=== PATIENT | female | born 1980 | race Caucasian/White ===

== ENCOUNTER 2017-12-28 12:01 | Emergency (ER) | payer BC, OTHER ==
[~2017-12-28] VITALS: Ht 157.5 cm; Wt 81.6 kg
--- NOTE | 2017-12-28 12:52 | ED Headache ---
General Chief Complaint: Head/Cervical Problems Stated Complaint: MIGRAINE Nursing Triage Note: PT AMB. TO ROOM 5 W/O DIFFUCLTY. A&OX4. CO MIGRIANE HEADACHE THAT BEGAN 3 DAYS AGO, PHOTOPHOBIA, AND NAUSEA. REPORTS PAIN IS BEHIND EYES AND BACK OF NECK. Nursing Sepsis Screen: No Definite Risk Source: patient Exam Limitations: no limitations History of Present Illness Date Seen by Provider: Dec 28, 2017 Time Seen by Provider: 12:35 Initial Comments The patient presents to the ER by private conveyance with a chief complaint she' s had a headache for 3 days now off and on. Is progressively getting worse. She describes it as throbbing and worse with standing and behind the eyes and in the occiput. She says it's similar to her previous migraine headaches that she' s had since she was a little child. She does not follow with a doctor nor she had these worked up by neurology. She does not take any medicines at all including control but she has had her tubes tied. She's tried ibuprofen around midnight last night most recently. She also tried to hydrocodone from a family member yesterday with minimal relief. She says she does not like going to the doctor she doesn't have to but had not she decided to come in. She is having photophobia and phonophobia. 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 She says she's been using Benadryl several times a day for the past several months for allergies. Allergies and Home Medications Allergies Coded Allergies: No Known Drug Allergies (Unverified , 12/28/17) Patient Home Medication List Home Medication List Reviewed: Yes Review of Systems Constitutional: No chills, No diaphoresis Eyes: Denies Blindness, Denies Blurred Vision, Denies Drainage, Denies Foreign Body Sensation, Denies Inflammation; Photophobia; Denies Vision Changes, Denies Contact Lenses, Denies Glasses Ears, Nose, Mouth, Throat: denies ear pain, denies ear discharge, denies nose pain, denies nose discharge Respiratory: No cough, No short of breath Cardiovascular: No chest pain, No edema Gastrointestinal: No abdominal pain, No constipation; nausea; No vomiting Genitourinary: No discharge, No dysuria : No (status post tubal ligation) Musculoskeletal: No back pain, No muscle pain Psychiatric/Neurological: Headache; Denies Numbness, Denies Paresthesia, Denies Seizure Past Gvtdjpp-Bmnzxk-Edsvav Hx Patient Social History Alcohol Use: Denies Use Recreational Drug Use: No Smoking Status: Never a Smoker 2nd Hand Smoke Exposure: No Recent Foreign Travel: No Contact w/Someone Who Travel: No Recent Infectious Disease Expo: No Recent Hopitalizations: No Physical Abuse: No Sexual Abuse: No Seasonal Allergies Seasonal Allergies: Yes Past Medical History Tonsillectomy, Tubal Ligation Respiratory: No Cardiac: No Neurological: No Female Reproductive Disorders: 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 Sexually Transmitted Disease: No Genitourinary: No Gastrointestinal: No Musculoskeletal: No Endocrine: No HEENT: No Cancer: No Psychosocial: No Nursing Suicide Risk Score: 0 Integumentary: No Blood Disorders: No Physical Exam Vital Signs Vital Signs - First Documented 12/28/17 12:17 Temp 98.5 Pulse 71 Resp 16 B/P (MAP) 142/111 (121) Pulse Ox 97 O2 Delivery Room Air Capillary Refill : Less Than 3 Seconds Height, Weight, BMI Height: 5', 2.00" Weight: 180lbs oz, 81.633944pd Method:Stated ,BMI General Appearance: WD/WN, mild distress HEENT: PERRL/EOMI, normal ENT inspection, TMs normal, pharynx normal, other ( drinking Pepsi) Neck: non-tender, supple, normal inspection Cardiovascular: normal peripheral pulses, regular rate, rhythm Respiratory: lungs clear, normal breath sounds, no respiratory distress, no accessory muscle use Extremities: normal inspection, normal capillary refill Psychiatric: alert, oriented x 3 Crainal Nerves: normal hearing, normal speech, PERRL Coordination/Gait: normal gait Motor/Sensory: no motor deficit, no sensory deficit, no pronator drift Progress/Results/Core Measures Results/Orders My Orders Orders - PARI PLUMMER Sumatriptan Injection (Imitrex Injection (12/28/17 13:00) Prochlorperazine Injection (Compazine In (12/28/17 13:00) Diphenhydramine Tablet (Benadryl Tablet) (12/28/17 13:00) Acetaminophen Tablet (Tylenol Tablet) (12/28/17 13:00) Ketorolac Injection (Toradol Injection) (12/28/17 13:00) Ondansetron Oral Dissolve Tab (Zofran (12/28/17 13:00) Medications Given in ED Current Medications Medications Dose Ordered Sig/Sendy Route Start Time Stop Time Status Last Admin Dose Admin Acetaminophen 1,000 mg ONCE ONCE PO 12/28/17 13:00 12/28/17 13:01 DC 12/28/17 13:06 1,000 MG Diphenhydramine HCl 25 mg ONCE ONCE PO 12/28/17 13:00 12/28/17 13:01 DC 12/28/17 13:06 25 MG Ketorolac Tromethamine 30 mg ONCE ONCE IM 12/28/17 13:00 12/28/17 13:01 DC 12/28/17 13:08 30 MG Ondansetron HCl 4 mg ONCE ONCE PO 12/28/17 13:00 12/28/17 13:01 DC 12/28/17 13:06 4 MG Prochlorperazine Edisylate 10 mg ONCE ONCE IM 12/28/17 13:00 12/28/17 13:01 DC 12/28/17 13:14 10 MG Sumatriptan Succinate 6 mg ONCE ONCE SQ 12/28/17 13:00 12/28/17 13:01 DC 12/28/17 13:12 6 MG Vital Signs/I&O 12/28/17 12:17 Temp 98.5 Pulse 71 Resp 16 B/P (MAP) 142/111 (121) Pulse Ox 97 O2 Delivery Room Air Blood Pressure Mean: 121 Progress Progress Note : Time: 12:52 Progress Note Sumatriptan, Tylenol, ketorolac, Zofran, Compazine, Benadryl and go home get some sleep. We have encouraged her to follow up with a primary care provider and all benefits that could entail. We have also encouraged her to switch from using Benadryl to Zyrtec for daily allergy use. Departure Impression Primary Impression: Migraine Qualified Codes: G43.001 - Migraine without aura, not intractable, with status migrainosus Disposition: HOME, SELF-CARE Condition: Stable Departure-Patient Inst. Decision time for Depature: 13:27 Referrals: NO,LOCAL PHYSICIAN (PCP/Family) Primary Care Physician Patient Instructions: Migraine Headache (DC) Add. Discharge Instructions: Please establish care with a primary care doctor to discuss using preventative medicines as well as some headache ending drugs such as sumatriptan. Avoid opiates as these can cause more chronic and frequent headaches. Drink plenty of fluids go home and get some sleep. You can use Tylenol 1000 mg every 8 hours in addition to ibuprofen 800 mg every 8 hours as needed for pain. Instead of using Benadryl daily you should probably consider switching to Zyrtec or Claritin as they do not have the drowsy side effects and last 24 hours. All discharge instructions reviewed with patient and/or family. Voiced understanding. Work/School Note: Work Release Form Date Seen in the Emergency Department: Dec 28, 2017 Return to Work: Dec 29, 2017 Restrictions: No Restrictions PARI PLUMMER Dec 28, 2017 12:52
[2017-12-28] MEDS ORDERED: ONDANSETRON 4 MG (ZOFRAN) ORAL DISSOLVE TAB PO ONE (13:00)
[2017-12-28] MEDS ORDERED: ACETAMINOPHEN 500 MG TAB (TYLENOL) PO ONE (13:00)
[2017-12-28] MEDS ORDERED: PROCHLORPERAZINE 10 MG/2ML INJ (COMPAZINE) IM ONE (13:00)
[2017-12-28] MEDS ORDERED: KETOROLAC 30 MG/ML VIAL IM ONE (13:00)
[2017-12-28] MEDS ORDERED: SUMAtriptan 6 MG/0.5 ML (IMITREX) INJ SQ ONE (13:00)
[2017-12-28] MEDS ORDERED: diphenhydrAMINE 25 MG TAB (BENADRYL) PO ONE (13:00)
[2017-12-28 13:53] VITALS: BP 167/102
== END 2017-12-28 13:53 | disposition home or self-care (01) ==
LOC: ER 12:05
DX: G43.909 Migraine, unspecified, not intractable, without status migrainosus (principal); Z98.51 Tubal ligation status; Z90.89 Acquired absence of other organs
CPT/HCPCS: 96372; 99284

== ENCOUNTER 2018-10-09 20:05 | Emergency (ER) | payer BC, OTHER ==
[~2018-10-09] VITALS: Ht 157.5 cm; Wt 81.6 kg
[2018-10-09] MEDS ORDERED: PROCHLORPERAZINE 10 MG/2ML INJ (COMPAZINE) INJ ONE (21:15)
[2018-10-09] MEDS ORDERED: KETOROLAC 60 MG/2 ML VIAL IM ONE (21:15)
[2018-10-09] MEDS ORDERED: diphenhydrAMINE 50 MG/ML INJ (BENADRYL) IM ONE (21:15)
--- NOTE | 2018-10-09 21:16 | ED Headache ---
General Chief Complaint: Head/Cervical Problems Stated Complaint: MIGRAINE Nursing Triage Note: PT AMB TO TRIAGE WITH COMPLAINT OF MIGRAINE. STATES MIGRAINE STARTED TODAY. STATES TOOK 4 TYLENOL PM FOUR HOURS AGO. STATES DID NOT RELIEVE SYMPTOMS. Nursing Sepsis Screen: No Definite Risk Source: patient Exam Limitations: no limitations (Of nausea vomiting with it) History of Present Illness Date Seen by Provider: Oct 09, 2018 Time Seen by Provider: 21:14 Initial Comments To ER with a global headache that started earlier today with associated photophobia and nausea. She has these occasionally. This is similar to prior. This was not sudden onset. Timing/Duration: other Severity/Quality: constant Location: global Prior Headaches/Recent Trauma: occasional headaches Modifying Factors: worse with exposure to light Associated Symptoms: nausea/vomiting Allergies and Home Medications Allergies Coded Allergies: No Known Drug Allergies (Unverified , 12/28/17) Patient Home Medication List Home Medication List Reviewed: Yes Review of Systems Review of Systems Constitutional: see HPI Eyes: No Symptoms Reported Ears, Nose, Mouth, Throat: no symptoms reported Respiratory: no symptoms reported Cardiovascular: no symptoms reported Genitourinary: no symptoms reported Musculoskeletal: no symptoms reported Skin: no symptoms reported Psychiatric/Neurological: Headache Past Pbdvscm-Lbrhdg-Fdedkd Hx Patient Social History Alcohol Use: Denies Use Recreational Drug Use: No Smoking Status: Never a Smoker 2nd Hand Smoke Exposure: No Recent Foreign Travel: No Contact w/Someone Who Travel: No Recent Infectious Disease Expo: No Recent Hopitalizations: No Immunizations Up To Date Tetanus Booster (TDap): Unknown PED Vaccines UTD: Yes Seasonal Allergies Seasonal Allergies: Yes Past Medical History Surgeries: Yes Gallbladder, Tonsillectomy, Tubal Ligation Respiratory: No Cardiac: No Neurological: Yes Headaches /Migraines Female Reproductive Disorders: 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 oz. 81.935460cf; BMI Method:Stated General Appearance: WD/WN, no apparent distress HEENT: PERRL/EOMI, normal ENT inspection Respiratory: lungs clear, normal breath sounds, no respiratory distress, no accessory muscle use Gastrointestinal: normal bowel sounds, non tender, soft Extremities: normal range of motion, non-tender Psychiatric: alert, oriented x 3 Crainal Nerves: normal hearing, normal speech Skin: normal color, warm/dry Progress/Results/Core Measures Results/Orders My Orders Orders - ELOY VASQUEZ APRN Prochlorperazine Injection (Compazine In (10/09/18 21:15) Diphenhydramine Injection (Benadryl Inje (10/09/18 21:15) Ketorolac Injection (Toradol Injection) (10/09/18 21:15) Medications Given in ED Vital Signs/I&O 10/09/18 10/09/18 21:02 21:49 Temp 97.8 97.8 Pulse 61 77 Resp 20 20 B/P (MAP) 172/92 (118) 141/89 (106) Pulse Ox 97 97 O2 Delivery Room Air Blood Pressure Mean: 118 Departure Impression Primary Impression: Headache Qualified Codes: R51 - Headache Disposition: 01 HOME, SELF-CARE Condition: Stable Departure-Patient Inst. Decision time for Depature: 21:36 Referrals: NO,LOCAL PHYSICIAN (PCP/Family) Primary Care Physician Patient Instructions: Headache, Adult (DC) Add. Discharge Instructions: 1. Return to ER for any concerns 2. Follow-up with regular doctor. All discharge instructions reviewed with patient and/or family. Voiced understanding. ELOY VASQUEZ APRN Oct 09, 2018 21:16
[2018-10-09 21:49] VITALS: BP 141/89
--- OUTSIDE RECORDS SUMMARY | 2018-10-09 22:18 | XMS REPORT ---
Author Author ROSA DIEHL Organization [facility] Address [address] [place] [address] Care Team Providers Care Furniture Sander Name Role Phone KING ROSA Unavailable PROBLEMS Unknown Problems ALLERGIES No Known Allergies ENCOUNTERS Encounter Location Date Diagnosis [facility] [address] [facility] [id number], [place] [address] Jan, Well woman exam with routine gynecological exam Z01.419 IMMUNIZATIONS No Known Immunizations SOCIAL HISTORY Never Assessed REASON FOR VISIT Well Woman Exam- last march she saw a doctor in [place] and they diagnosed her with HPV, she was supposed to follow up but didn't. Jeremy Rios RN PLAN OF CARE Activity Details Follow Up 1 Year or as indicated by lab Reason: VITAL SIGNS Height 62 in 2018-02-10 Weight 205.3 lbs 2018-02-10 Temperature 98.6 degrees Fahrenheit 2018-02-10 Heart Rate 70 bpm 2018-02-10 Respiratory Rate 18 2018-02-10 BMI 37.55 kg/m2 2018-02-10 Blood pressure systolic 112 mmHg 2018-02-10 Blood pressure diastolic 82 mmHg 2018-02-10 MEDICATIONS No Known Medications RESULTS No Results PROCEDURES Procedure Date Ordered Result Body Site SPECIMEN HANDLING Feb 10, 2018 Bacterial Vaginosis In House Feb 10, 2018 CULTURE, BACTERIA, OTHER Feb 10, 2018 TRICHOMONAS ASSAY W/OPTIC Feb 10, 2018 No Charge Feb 10, 2018 INSTRUCTIONS MEDICATIONS ADMINISTERED No Known Medications MEDICAL (GENERAL) HISTORY Type Description Date Surgical History gallbladder removal 2007 Surgical History tonsillectomy age 5 Surgical History tubal ligation 05/2007 Hospitalization History childbirth/ surgeries Hospitalization History internal bleeding after gallbladder surgery
== END 2018-10-09 21:49 | disposition home or self-care (01) ==
LOC: EDUNIT# 20:05 → ER 20:06
DX: R51 Headache (principal); Z98.51 Tubal ligation status; Z90.89 Acquired absence of other organs; Z86.69 Personal history of other diseases of the nervous system and sense organs
CPT/HCPCS: 99284

== ENCOUNTER 2018-12-12 20:39 | Emergency (ER) | payer BC ==
[~2018-12-12] VITALS: Ht 157.5 cm; Wt 81.6 kg
--- OUTSIDE RECORDS SUMMARY | 2018-12-12 20:43 | XMS REPORT | Continuity of Care Document ---
Author Organization Unknown Address Unknown Allergies Active Description Code Type Severity Reaction Onset Reported/Identified Relationship to Patient Clinical Status Yes No Known Drug Allergies [id number] Drug Allergy Unknown N/A 12/28/2017 Medications There is no data. Problems Date Dx Coded Attending Type Code Diagnosis Diagnosed By 12/28/2017 PARI PLUMMER MD Ot G43.909 MIGRAINE, UNSP, NOT INTRACTABLE, WITHOUT 12/28/2017 PARI PLUMMER MD Ot R51 HEADACHE 12/28/2017 PARI PLUMMER MD Ot Z90.89 ACQUIRED ABSENCE OF OTHER ORGANS 12/28/2017 PARI PLUMMER MD Ot Z98.51 TUBAL LIGATION STATUS 12/30/2017 PARI PLUMMER MD Ot G43.909 MIGRAINE, UNSP, NOT INTRACTABLE, WITHOUT 12/30/2017 PARI PLUMMER MD Ot R51 HEADACHE 12/30/2017 PARI PLUMMER MD Ot Z90.89 ACQUIRED ABSENCE OF OTHER ORGANS 12/30/2017 PARI PLUMMER MD Ot Z98.51 TUBAL LIGATION STATUS 10/09/2018 ELOY VASQUEZ APRN Ot R51 HEADACHE 10/09/2018 ELOY VASQUEZ APRN Ot Z86.69 PERSONAL HISTORY OF DIS OF THE NERVOUS S 10/09/2018 ELOY VASQUEZ APRN Ot Z90.89 ACQUIRED ABSENCE OF OTHER ORGANS 10/09/2018 ELOY VASQUEZ APRN Ot Z98.51 TUBAL LIGATION STATUS 10/12/2018 ELOY VASQUEZ APRN Ot R51 HEADACHE 10/12/2018 ELOY VASQUEZ APRN Ot Z86.69 PERSONAL HISTORY OF DIS OF THE NERVOUS S 10/12/2018 ELOY VASQUEZ APRN Ot Z90.89 ACQUIRED ABSENCE OF OTHER ORGANS 10/12/2018 ELOY VASQUEZ APRN Ot Z98.51 TUBAL LIGATION STATUS Procedures There is no data. Results Test Result Range SUREPATH PAP AND HPV mRNA E6/E7 - 02/10/18 17:18 CLINICAL INFORMATION: NRG LMP: 01/31/18 NRG PREV. PAP: NRG PREV. BX: NRG SOURCE: Cervix NRG STATEMENT OF ADEQUACY: NRG INTERPRETATION/RESULT: NRG MEDIA SERVICES DIRECTOR: NRG HPV mRNA E6/E7, SUREPATH VIAL Not Detected NOT DETECTED COMMENT NRG CULTURE, GENITAL - 02/10/18 17:18 CULTURE, GENITAL SEE NOTE NRG Encounters ACCT No. Visit Date/Time Discharge Status Pt. Type Provider Facility Loc./Unit Complaint [id number] 10/25/2018 10:20:00 10/25/2018 23:59:59 CLS Outpatient JOSÉ ANTONIO LAC [facility] [id number] 02/10/2018 16:00:00 Document Registration [id number] 10/09/2018 20:06:00 10/09/2018 21:49:00 DIS Emergency ELOY VASQUEZ APRN [facility] ER MIGRAINE [id number] 12/28/2017 12:05:00 12/28/2017 13:53:00 DIS Emergency PARI PLUMMER MD [facility] ER MIGRAINE
--- NOTE | 2018-12-12 21:02 | ED Upper Extremity ---
General Chief Complaint: Upper Extremity Stated Complaint: R SHOULDER PAIN Nursing Triage Note: PT STATES SHE HAS R. SHOULDER PAIN FOR 1 MONTH. PT STATES SHE HAS [place] TODAY AND HAD A PULLING INJURY. PT DENIES NUMBNESS OR TINGLING IN HANDS. Nursing Sepsis Screen: No Definite Risk History of Present Illness Date Seen by Provider: Dec 12, 2018 Time Seen by Provider: 21:00 Initial Comments 38-year-old female presents for right shoulder pain. She is unsure of the specific injury but has been bothering her for at least one month. [place] and felt a pop in her right shoulder. SHe denies any previous history of injuries to her right shoulder. She has not taken any bvhn-hir-yfnsnfm pain medications. She has a history of hypertension but does not take her medications. Onset: this evening Pain/Injury Location: right shoulder Method of Injury: unknown Allergies and Home Medications Allergies Coded Allergies: No Known Drug Allergies (Unverified , 12/28/17) Patient Home Medication List Home Medication List Reviewed: Yes Review of Systems Constitutional: no symptoms reported Musculoskeletal: see HPI, joint pain (right shoulder) All Other Systems Reviewed Negative Unless Noted: Yes Past Xzmnhov-Fpxkhz-Jmlnew Hx Past Med/Social Hx: Reviewed Nursing Past Med/Soc Hx Patient Social History Alcohol Use: Denies Use Recreational Drug Use: No Smoking Status: Never a Smoker 2nd Hand Smoke Exposure: No Recent Foreign Travel: No Contact w/Someone Who Travel: No Recent Infectious Disease Expo: No Recent Hopitalizations: No Physical Abuse: No Sexual Abuse: No Mistreated: No Fear: No Immunizations Up To Date Tetanus Booster (TDap): Unknown PED Vaccines UTD: Yes Seasonal Allergies Seasonal Allergies: Yes Past Medical History Surgeries: Yes Gallbladder, Tonsillectomy, Tubal Ligation Respiratory: No Cardiac: Yes Hypertension (Noncompliant with treatment) Neurological: Yes Headaches /Migraines Female 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 oz. 81.512636hl; BMI Method:Stated General Appearance: WD/WN, no apparent distress Neck: non-tender, full range of motion, supple, normal inspection Cardiovascular: normal peripheral pulses, regular rate, rhythm Respiratory: chest non-tender, lungs clear, normal breath sounds Shoulder: normal inspection (right shoulder), no evidence of injury, limited ROM, pain Neurologic/Psychiatric: no motor/sensory deficits, alert, normal mood/affect, oriented x 3 Skin: normal color, warm/dry Right shoulder active range of motion: Elevation to 90, full internal rotation and external rotation. Passive range of motion 120 but with discomfort. Negative apprehension [place]'s maneuver. Power V/V biceps and triceps weakness /V external rotators. Neurovascular status intact right upper extremity symmetric with the left. Progress/Results/Core Measures Results/Orders My Orders Orders - RACHANA HAIDER Shoulder, Right, 3 Views (12/12/18 20:51) Ibuprofen Tablet (Motrin Tablet) (12/12/18 21:30) Vital Signs/I&O 12/12/18 20:50 Temp 97.6 Pulse 69 Resp 18 B/P (MAP) 162/121 (135) Pulse Ox 97 O2 Delivery Room Air Blood Pressure Mean: 135 Diagnostic Imaging Diagonstic Imaging: Xray Plain Films/CT/US/NM/MRI: other (right shoulder) Comments NAME: DEBESTRELLA Trini [facility] REC#: [id number] PT STATUS: REG ER : 1980 PHYSICIAN: RACHANA HAIDER ADMIT DATE: 12/12/18/ER Draft Date of Exam:12/12/18 SHOULDER, RIGHT, 3 VIEWS PATIENT HISTORY: Right shoulder pain for one month. TECHNIQUE: 3 views of the right shoulder COMPARISON: None FINDINGS: No acute fracture or dislocation is seen in the right shoulder. Alignment appears normal. Joint spaces are preserved. IMPRESSION: No acute osseous abnormality seen in the right shoulder. Dictated on workstation # [id number] Dict: 12/12/182119 Trans: 12/12/182128 [facility] [id number] Interpreted by: ERIC TOLEDO MD Electronically signed by: Reviewed: Reviewed by Me Departure Impression Primary Impression: Right shoulder pain Qualified Codes: M25.511 - Pain in right shoulder Additional Impression: Injury of right rotator cuff Qualified Codes: S46.001A - Unspecified injury of muscle(s) and tendon(s) of the rotator cuff of right shoulder, initial encounter Disposition: HOME, SELF-CARE Condition: Improved Departure-Patient Inst. Decision time for Depature: 21:22 Referrals: NO,LOCAL PHYSICIAN (PCP/Family) Primary Care Physician Patient Instructions: Rotator Cuff Injury (DC) Add. Discharge Instructions: Ice to right shoulder 20 minutes every 2 hours while awake. All up at [facility] for referral to orthopedics. (Dr. Crain at [facility], Dr. [facility] in [place], [facility] in [place]). Alternate between ibuprofen 600 mg and Tylenol 650 mg every 4 hours for pain. Gentle range of motion exercises to right shoulder as instructed. Activity as tolerated. Resume your blood pressure medication and follow-up at [facility] for hypertension. Return to emergency department for new, urgent health care needs. All discharge instructions reviewed with patient and/or family. Voiced understanding. RACHANA HAIDER Dec 12, 2018 21:02
[2018-12-12] MEDS ORDERED: IBUPROFEN 800 MG (MOTRIN) TAB PO ONE (21:30)
--- NOTE | 2018-12-12 21:30 | Diagnostic Imaging Report ---
PATIENT HISTORY: Right shoulder pain for one month. TECHNIQUE: 3 views of the right shoulder COMPARISON: None FINDINGS: No acute fracture or dislocation is seen in the right shoulder. Alignment appears normal. Joint spaces are preserved. IMPRESSION: No acute osseous abnormality seen in the right shoulder. Dictated by: Dictated on workstation # [id number]
[2018-12-12 21:34] VITALS: BP 162/121
== END 2018-12-12 21:35 | disposition home or self-care (01) ==
LOC: EDUNIT# 20:39 → ER 20:40
DX: S46.001A Unspecified injury of muscle(s) and tendon(s) of the rotator cuff of right shoulder, initial encounter (principal); I10 Essential (primary) hypertension; G43.909 Migraine, unspecified, not intractable, without status migrainosus; Z91.14 Patient's other noncompliance with medication regimen; Z98.51 Tubal ligation status; Z90.89 Acquired absence of other organs; X50.1XXA Overexertion from prolonged static or awkward postures, initial encounter; Y92.830 Public park as the place of occurrence of the external cause
CPT/HCPCS: 73030

== ENCOUNTER 2021-06-14 17:27 | Emergency (ER) | payer SELFPAY ==
[~2021-06-14] VITALS: Ht 157.5 cm; Wt 86.2 kg
--- NOTE | 2021-06-14 19:18 | Diagnostic Imaging Report ---
EXAMINATION: Chest radiograph, portable AP view. DATE: 06/14/2021 6:58 PM. INDICATION: 41-year-old female, cough, shortness of breath. COMPARISON: None. FINDINGS: Heart size and mediastinal contours are unremarkable. There is no identified pneumothorax. There is no large pleural effusion. There are mild linear opacities in the right lower to midlung. There is no additional focal airspace consolidation. IMPRESSION: 1. Subsegmental atelectasis in the right lower to midlung. 2. No identified acute cardiopulmonary abnormality. Dictated by: Dictated on workstation # [id number]
[2021-06-14] MEDS ORDERED: KETOROLAC 30 MG/ML VIAL IM ONE (19:30)
--- NOTE | 2021-06-14 19:31 | ED General ---
General Chief Complaint: COVID19 Suspect/Confirmed Stated Complaint: COUGH/CHEST CONGESTION/BODYACHES/HEADACHE/FEVER Nursing Triage Note: PT AMB TO RM 5 W REPORTS OF CHEST DISCOMFORT, FISCHER, SOA, COUGH, AND BODY ACHES X5 DAYS. PT A&OX4. Source of Information: Patient Exam Limitations: No Limitations (FAWN APODACA MD) History of Present Illness Date Seen by Provider: Jun 14, 2021 Time Seen by Provider: 19:37 Initial Comments Headache cough congestion. Headache for 5 days, fever and congestion since last night. Severity: Moderate Associated Systoms: Headaches (ELOY VASQUEZ APRN) Allergies and Home Medications Allergies Coded Allergies: No Known Drug Allergies (Unverified , 12/28/17) Patient Home Medication List Home Medication List Reviewed: Yes (ELOY VASQUEZ APRN) Baloxavir Marboxil (Xofluza) 80 Mg Tablet, 80 MG PO DAILY Prescribed by: ELOY VASQUEZ on 06/14/211937 Review of Systems Review of Systems Constitutional: see HPI EENTM: see HPI Respiratory: no symptoms reported Cardiovascular: no symptoms reported Genitourinary: no symptoms reported Musculoskeletal: no symptoms reported Skin: no symptoms reported Psychiatric/Neurological: No Symptoms Reported Hematologic/Lymphatic: No Symptoms Reported (ELOY VASQUEZ APRN) Past Kcqnuxl-Wjbkrq-Njhrqd Hx Patient Social History Tobacco Use?: No Use of E-Cig and/or Vaping dev: No Substance use?: No Alcohol Use?: No (FAWN APODACA MD) Immunizations Up To Date Tetanus Booster (TDap): Unknown PED Vaccines UTD: Yes Influenza Vaccine Up-to-Date: No; Not Current First/Initial COVID19 Vaccinat: NONE Second COVID19 Vaccination Ashish: NONE Third COVID19 Vaccination Date: NONE COVID19 Vaccine Director Of Sales Support: NONE (FAWN APODACA MD) Seasonal Allergies Seasonal Allergies: Yes (FAWN APODACA MD) Past Medical History Surgeries: Yes Gallbladder, Tonsillectomy, Tubal Ligation Respiratory: No Cardiac: Yes Hypertension Neurological: Yes Headaches /Migraines Female Reproductive Disorders: Denies HEALTH MANAGEMENT CONSULTANT History: Tubal Ligation Sexually Transmitted Disease: No Genitourinary: No Gastrointestinal: No Musculoskeletal: No Endocrine: No HEENT: No Cancer: No Psychosocial: No Integumentary: No Blood Disorders: No (FAWN APODACA MD) Physical Exam Vital Signs Vital Signs - First Documented 06/14/21 17:37 Temp 37.5 Pulse 74 Resp 20 B/P (MAP) 143/115 (124) Pulse Ox 97 O2 Delivery Room Air (ELOY VASQUEZ APRN) Vital Signs Capillary Refill : Less Than 3 Seconds (FAWN APODACA MD) Height, Weight, BMI Height: 5'2.00" Weight: 180lbs. oz. 81.120368hy; 34.00 BMI Method:Stated (FAWN APODACA MD) General Appearance: No Apparent Distress, WD/WN Eyes: Bilateral Eye Normal Inspection, Bilateral Eye PERRL, Bilateral Eye EOMI Respiratory: No Accessory Muscle Use, No Respiratory Distress Cardiovascular: Regular Rate, Rhythm, Normal Peripheral Pulses Gastrointestinal: Normal Bowel Sounds, Non Tender, Soft Neurologic/Psychiatric: Alert, Oriented x3 Skin: Normal Color, Warm/Dry (ELOY VASQUEZ APRN) Progress/Results/Core Measures Suspected Sepsis SIRS Temperature: Pulse: 74 Respiratory Rate: 20 Blood Pressure 143 /115 Mean: 124 (FAWN APODACA MD) Results/Orders Lab Results Laboratory Tests Test 06/14/21 17:43 Range/Units Influenza Type A (RT-PCR) Detected H Not Detecte Influenza Type B (RT-PCR) Not Detected Not Detecte SARS-CoV-2 RNA (RT-PCR) Not Detected Not Detecte (ELOY VASQUEZ APRN) My Orders Orders - ELOY VASQUEZ APRN Covid 19 Inhouse Test (06/14/21 17:39) Influenza A And B By Pcr (06/14/21 17:39) Chest 1 View, Ap/Pa Only (06/14/21 18:04) (ELOY VASQUEZ APRN) Medications Given in ED Current Medications Medications Dose Ordered Sig/Sendy Route Start Time Stop Time Status Last Admin Dose Admin Ketorolac Tromethamine 30 mg ONCE ONCE IM 06/14/21 19:30 06/14/21 19:31 DC 06/14/21 19:40 30 MG (ELOY VASQUEZ APRN) Vital Signs/I&O 06/14/21 17:37 Temp 37.5 Pulse 74 Resp 20 B/P (MAP) 143/115 (124) Pulse Ox 97 O2 Delivery Room Air (ELOY VASQUEZ APRN) Vital Signs/I&O Capillary Refill : Less Than 3 Seconds (FAWN APODACA MD) Blood Pressure Mean: 124 Progress Note : Time: 19:31 Progress Note Patient tested positive for influenza A. She is complaining of severe headache which she has had for 5 days. She has not taken any NSAID medications recently. She has no allergies to NSAIDs. I offered ibuprofen or Toradol. She elects Toradol. (FAWN APODACA MD) Departure Impression Primary Impression: Influenza A Additional Impression: Acute headache Disposition: HOME, SELF-CARE Condition: Stable Departure-Patient Inst. Decision time for Depature: 19:37 (ELOY VASQUEZ APRN) Referrals: NO,LOCAL PHYSICIAN (PCP/Family) Primary Care Physician Patient Instructions: Flu, Adult (DC) Scripts Baloxavir Marboxil (Xofluza) 80 Mg Tablet 80 MG PO DAILY, #1 TAB Prov: ELOY VASQUEZ APRN 06/14/21 Work/School Note: Work Release Form Date Seen in the Emergency Department: Jun 14, 2021 Return to Work: Jun 19, 2021 ATTENDING PHYSICIAN NOTE: I was physically present as attending physician in the emergency department during the care of this patient. See notes above detailing my involvement. (FAWN APODACA MD) FAWN APODACA MD Jun 14, 2021 19:31 ELOY VASQUEZ APRN Jun 14, 2021 19:38
[2021-06-14] MEDS ORDERED: BALO80TA PO (19:38)
[2021-06-14] MEDS ORDERED: PROCHLORPERAZINE 10 MG/2ML INJ (COMPAZINE) IM ONE (20:00)
[2021-06-14] MEDS ORDERED: diphenhydrAMINE 50 MG/ML INJ (BENADRYL) IM ONE (20:00)
[2021-06-14 20:04] VITALS: BP 117/98
== END 2021-06-14 20:04 | disposition home or self-care (01) ==
LOC: EDUNIT# 17:27 → ER 17:29
DX: J09.X2 Influenza due to identified novel influenza A virus with other respiratory manifestations (principal); I10 Essential (primary) hypertension; Z20.822 Contact with and (suspected) exposure to COVID-19
CPT/HCPCS: 71045; 87636

== ENCOUNTER 2022-01-02 10:08 | Outpatient (CLI) | payer SELFPAY ==
[~2022-01-02] VITALS: Ht 62 cm; Wt 82.7 kg
[~2022-01-02 10:08] MED LIST: BALO80TA PO
[2022-01-02] MEDS ORDERED: EPINEPHrine INJECTION 1 MG/ML AMP IM PRN (10:30)
[2022-01-02] MEDS ORDERED: BEBTELOVIMAB 175 MG/2 ML VIAL IV ONE (10:30)
[2022-01-02] MEDS ORDERED: ACETAMINOPHEN 500 MG TAB (TYLENOL) PO PRN (10:30)
[2022-01-02] MEDS ORDERED: ONDANSETRON 4 MG/2 ML (SDV) Z0FRAN IV PRN (10:30)
[2022-01-02] MEDS ORDERED: diphenhydrAMINE 50 MG/ML INJ (BENADRYL) IV PRN (10:30)
[2022-01-02 10:32] VITALS: BP 145/92
== END 2022-01-02 11:32 | disposition home or self-care (01) ==
LOC: INFUSION 10:08
PROVIDERS: ATTEND Nurse Practitioner Community Health
DX: U07.1 COVID-19 (principal)